=== PATIENT | male | born 1940 ===

== ENCOUNTER 2018-08-22 07:53 | Outpatient (CLI) | payer OTHER ==
[~2018-08-22] VITALS: Ht 152.4 cm; Wt 78.5 kg
== END 2018-08-22 08:15 | disposition home or self-care (01) ==
LOC: OFIC 805 07:53
DX: H90.3 Sensorineural hearing loss, bilateral (principal); H61.23 Impacted cerumen, bilateral

== ENCOUNTER 2018-10-03 08:11 | Outpatient (CLI) | payer OTHER ==
[~2018-10-03] VITALS: Ht 152.4 cm; Wt 73.9 kg
== END 2018-10-03 08:25 | disposition home or self-care (01) ==
LOC: OFIC 805 08:11
DX: H90.3 Sensorineural hearing loss, bilateral (principal); H93.12 Tinnitus, left ear